=== PATIENT | female | born 1950 | race Caucasian/White ===

== ENCOUNTER 2020-07-21 13:07 | Observation (INO) | payer MEDICARE, OTHER ==
[2020-07-21] VITALS (23 sets, daily range): BP systolic 124–165; BP diastolic 58–82
[~2020-07-21] VITALS: Ht 165.1 cm; Wt 44.7 kg
[2020-07-21] MEDS: ENOXAPARIN 30MG/0.3ML SYRINGE (J1650 PER 10MG) SC SCH (09:00)
[2020-07-21] MEDS ORDERED: ALEN70TA74 PO (13:30)
[2020-07-21] MEDS ORDERED: LEVO50TA5 PO (13:30)
[2020-07-21] MEDS ORDERED: ATOR1TAB19 PO (13:30)
--- NOTE | 2020-07-21 13:35 | REPVR ---
PROCEDURE INFORMATION: Exam: CT Head Without Contrast Exam date and time: 07/21/2020 1:16 PM Age: 69 years old Clinical indication: Dizziness; Additional info: CVA - nursing interventions must not delay CT TECHNIQUE: Imaging protocol: Computed tomography of the head without contrast. Radiation optimization: All CT scans at this facility use at least one of these dose optimization techniques: automated exposure control; mA and/or kV adjustment per patient size (includes targeted exams where dose is matched to clinical indication); or iterative reconstruction. Other technique: STROKE PROTOCOL was implemented. COMPARISON: No relevant prior studies available. FINDINGS: Brain: There is mild ill-defined patchy hypodensity within the bilateral cerebral periventricular white matter, consistent with chronic microvascular ischemic changes. There is mild diffuse cerebral atrophy present, consistent with this patient's age. Ventricles: The ventricular system demonstrates mild diffuse compensatory enlargement. Bones/joints: Unremarkable. No acute fracture. Paranasal sinuses: Visualized sinuses are unremarkable. No fluid levels. Mastoid air cells: Visualized mastoid air cells are well aerated. Soft tissues: Unremarkable. IMPRESSION: 1. No acute infarction, masses or hemorrhage is seen. No acute intracranial abnormality is identified. 2. Diffuse age-related cerebral atrophy and mild chronic microvascular white matter ischemic changes. ASSESSMENT: ASPECTS ([facility] Stroke Program Early CT Score) is 10. Electronically signed by: Mariusz Onofre On 07/21/2020 13:35:05 PM
[2020-07-21 13:50] LABS: BASO # 0.1 10^3/uL (0.0-0.2); BASO % 0.7 % (0.0-1.0); EOS # 0.1 10^3/uL (0.0-0.5); EOS % 0.8 % (0.0-3.0); HEMATOCRIT 43.1 % (36.0-47.0); HEMOGLOBIN 14.6 g/dl (12.0-15.5); LYMPH # 2.2 10^3/uL (1.5-5.0); LYMPH % 28.3 % (24.0-44.0); MEAN CORPUSCULAR HEMOGLOBIN 30.7 pg (27.0-33.0); MEAN CORPUSCULAR HGB CONC 33.9 g/dl (32.0-36.5); MEAN CORPUSCULAR VOLUME 90.7 fl (80.0-96.0); MONO # 0.6 10^3/uL (0.0-0.8); MONO % 7.4 % (0.0-5.0); NEUTROPHILS # 4.8 10^3/uL (1.5-8.5); NEUTROPHILS % 62.5 % (36.0-66.0); PLATELET COUNT, AUTOMATED 199 10^3/uL (150-450); RED BLOOD COUNT 4.75 10^6/uL (4.00-5.40); WHITE BLOOD COUNT 7.6 10^3/uL (4.0-10.0)
[2020-07-21] MEDS ORDERED: ASPIRIN 325 MG TAB PO ONE (14:00)
[2020-07-21 14:01] LABS: INR 0.91; PARTIAL THROMBOPLASTIN TIME 24.7 SECONDS (24.2-38.5); PROTHROMBIN TIME 12.4 SECONDS (12.5-14.3)
--- NOTE | 2020-07-21 14:18 | REPVR ---
PROCEDURE INFORMATION: Exam: XR Chest, 1 View Exam date and time: 07/21/2020 2:07 PM Age: 69 years old Clinical indication: Other: Dizziness CVA TECHNIQUE: Imaging protocol: XR of the chest Views: 1 view. COMPARISON: No relevant prior studies available. FINDINGS: Lungs: No acute infiltrate is seen. Pleural space: No pneumothorax or pleural effusion is seen. Heart/Mediastinum: No cardiomegaly. Bones/joints: The visualized osseous structures are unremarkable. No acute fracture or dislocation is seen. IMPRESSION: No acute infiltrate, pneumothorax or pleural effusion is seen. Electronically signed by: Mariusz Onofre On 07/21/2020 14:18:35 PM
[2020-07-21] MEDS ORDERED: ATOR40TA75 PO (14:22)
[2020-07-21 14:29] LABS: CK-MB VALUE MASS < 1.0 NG/ML (<3.6); CPK CREATINE PHOSPHOKINASE 62 U/L (26-192); MB/CK RELATIVE INDEX 1.61 (< OR =4); TROPONIN I < 0.02 NG/ML (< 0.10)
[2020-07-21] MEDS ORDERED: MAALOX 30 ML SUSP *UDC PO PRN (15:00)
[2020-07-21] MEDS ORDERED: ACETAMINOPHEN TAB 650MG DOSE (2X325MG) PO PRN (15:00)
[2020-07-21] MEDS ORDERED: MOM 30ML SUSPENSION UDC PO PRN (15:00)
--- NOTE | 2020-07-21 15:04 | HPEPDOC ---
General Date of Admission Jul 21, 2020 at 13:08 Date of Service: Jul 21, 2020 Attending Physician: A Chief Complaint The patient is a 69-year-old female with a PMHx of hyperlipidemia, and hypothyroidism, who presented to [facility] ED c/o loss of speech for ~10-15 minutes this afternoon. [place] is visiting her [place] from [place]. She was sitting behind her computer, stood up and suddenly noticed that she coud not speak. She could understand her , and wanted to reply but could not express words. She denies having vision changes, headache, numbess, tingling, dizziness, weakness or gait instability at the time. The aphasia resolved after 10 minutes, but decided to come to hospital for workup. Denies prior episodes. No fall, or syncope, no trauma. In the ED, vitals stable. Lab work unremarkable. CT brain wo contrast showed no acute infarct or hemorrhage. Source: Patient Exam Limitations: No limitations Home Medications Scheduled Alendronate Sodium (Alendronate Sodium) 70 Mg Tablet, 70 MG PO QWEEK, (Reported) FRIDAY Atorvastatin Calcium (Atorvastatin Calcium) 40 Mg Tablet, 40 MG PO QHS, (Reported) Levothyroxine Sodium (Levothyroxine Sodium) 50 Mcg Tablet, 50 MCG PO DAILY, (Reported) Allergies Coded Allergies: No Known Allergies (Unverified , 07/21/20) Past Medical History Medical History HLD Hypothyroidism Surgical History Tubal ligation Family History Significant Family History: Heart disease Father - [place] Social History * Smoker: Denies Alcohol: Denies Drugs: denies Recent Travel/Sick Contacts: Denies: Recent travel, Recent sick contacts Psychosocial History: No pertinent psych hx A-FIB/CHADSVASC A-FIB History Current/History of A-Fib/PAF?: No Current PO Anticoag Therapy: No Review of Systems Constitutional: Denies: Chills, Fever, Malaise, Night Sweats, Weakness, Fatigue, Weight Loss, Lethargy, Other Eyes: Denies: Pain, Vision change, Conjunctivae inflammation, Eyelid inflammation, Redness, Other ENT: Denies: Head Aches, Ear Pain, Dysphagia, Sinus Congestion, Post Nasal Drip, Sore Throat, Epistaxis, Other Symptoms Skin: Denies: Rash, Lesions, Jaundice, Bruising, Itching, Dry, Breakdown, Nail Changes, Other Pulmonary: Denies: Dyspnea, Cough, Pleuritic Chest Pain, Other Symptoms Cardiovascular: Reports: Chest Pain; Denies: Palpitations, Orthopnea, Paroxysmal Noc. Dyspnea, Edema, Lt Headedness, Other Symptoms Gastrointestinal: Denies: Nausea, Vomiting, Abdominal Pain, Diarrhea, Constipation, Melena, Hematochezia, Other Symptoms Hematologic: Denies: Bruising, Bleeding Excessively, Petecchia, Purpura, Enlarged Lymph Nodes, Other Hematologic Neurological: Denies: Numbness, Incoordination, Change in speech, Confusion, Seizures, Other Symptoms Physical Examination General Exam: Positive: Cooperative, No Acute Distress, Mild Distress Eye Exam: Positive: PERRLA, Conjunctiva & lids normal, EOMI ENT Exam: Positive: Atraumatic, Mucous membr. moist/pink, Pharynx Normal Neck Exam: Positive: Supple Chest Exam: Positive: Clear to auscultation Heart Exam: Positive: Rate Normal, Normal S1, Normal S2 Abdomen Exam: Positive: Normal bowel sounds Extremity Exam: Positive: Normal pulses Skin Exam: Positive: Nl turgor and temperature Neuro Exam: Positive: Normal Speech, Strength at 5/5 X4 ext, Normal Tone, Cranial Nerves 3-12 NL, Reflexes 2+ Psych Exam: Positive: Mental status NL, Mood NL, Oriented x 3 Vital Signs Vital Signs Date Time Temp Pulse Resp B/P (MAP) Pulse Ox O2 Delivery O2 Flow Rate FiO2 07/21/20 14:45 76 150/67 100 07/21/20 13:51 18 Room Air 07/21/20 13:09 99.4 Laboratory Data Labs 24H Laboratory Tests 2 07/21/20 13:16: Immature Granulocyte % (Auto) 0.3, Neutrophils (%) (Auto) 62.5, Lymphocytes (%) (Auto) 28.3, Monocytes (%) (Auto) 7.4H, Eosinophils (%) (Auto) 0.8, Basophils (%) (Auto) 0.7, Neutrophils # (Auto) 4.8, Lymphocytes # (Auto) 2.2, Monocytes # (Auto) 0.6, Eosinophils # (Auto) 0.1, Basophils # (Auto) 0.1, Nucleated Red Blood Cells % (auto) 0.0, Prothrombin Time 12.4, Prothromb Time International Ratio 0.91, Activated Partial Thromboplast Time 24.7L, Total Creatine Kinase 62, Creatine Kinase MB < 1.0, Creatine Kinase MB Relative Index 1.61, Troponin I < 0.02 07/21/20 13:43: POC Glucose (Misc Panel) 96, POC Sodium (Misc Panel) 139, POC Potassium (Misc Panel) 3.9, POC Chloride (Misc Panel) 104, POC Total CO2 (Misc Panel) 24.0, POC Blood Urea Nitrogen (Misc Panel 18, POC Ionized Calcium (Misc Panel) 5.1, POC Creatinine (Misc Panel) 0.8, POC Hematocrit (Misc Panel) 44.0 07/21/20 13:45: Bedside Glucose (Misc Panel) 87 CBC/BMP Laboratory Tests 07/21/20 13:16 RAD Interpretation STUDY: CT Chest Rad Actions: Report Reviewed RAD Interpretation: Normal Assessment/Plan Assessment: 69 yo F with a hx of HLD, hypothyroidism, admitted for workup of TIA, after an episode of expressive aphasia which lasted for 10-15 minutes. Initial workup unremarkable. #Suspected TIA - expressive aphasia, lasted ~10-15 min, resolved - CT brain wo contrast showing no acute ischemia/hemorrhage - obtain MRI/MRA wo contrast - obtain Carotid US - obtain 2D echo with bubble study - lipid panel, A1c - bedside swallow eval performed, drank 3 oz of water without cough - continue ASA/statin (increase home lipitor to 80 mg qhs) - start plavix x 3 mo - outpatient neurology follow up #HDL - lipitor 80 mg qhs # Hypothyroid - resume home meds - check TSH, FT4 DVT ppx: lovenox Dispo: admitted for observation. Expect DC home after medical clearance. Plan / VTE VTE Prophylaxis Ordered?: Yes MIRIAN SHORE MD Jul 21, 2020 15:04
[2020-07-21 15:14] LABS: BLOOD UREA NITROGEN 18 MG/DL (7-18); CALCIUM LEVEL 9.8 MG/DL (8.8-10.2); CARBON DIOXIDE LEVEL 25 MEQ/L (21-32); CHLORIDE LEVEL 107 MEQ/L (98-107); CREATININE FOR GFR 0.91 MG/DL (0.55-1.30); GLOMERULAR FILTRATION RATE > 60.0 (>45); GLUCOSE, FASTING 92 MG/DL (70-100); POTASSIUM SERUM 4.3 MEQ/L (3.5-5.1); SODIUM LEVEL 140 MEQ/L (136-145)
[2020-07-21 16:14] LABS: HEMOGLOBIN A1c 5.7 %
--- NOTE | 2020-07-21 19:36 | REPVR ---
PROCEDURE INFORMATION: Exam: US Duplex Bilateral Extracranial Arteries Exam date and time: 07/21/2020 6:58 PM Age: 69 years old Clinical indication: Other: Suspected TIA TECHNIQUE: Imaging protocol: Real-time Duplex ultrasound scan of the bilateral carotid and vertebral arteries combining cross scale, color Doppler and spectral waveform analysis. Bilateral exam. COMPARISON: CT Head without contrast 07/21/2020 1:18 PM FINDINGS: Right common carotid artery: Unremarkable. No occlusion or stenosis. Waveforms are normal. Right internal carotid artery: Mild noncalcific atherosclerotic changes. No occlusion or stenosis. Waveforms are normal. Right ICA/CCA ratio: Within normal limits. Right external carotid artery: No stenosis in the origin. Right vertebral artery: Unremarkable. Antegrade flow. Left common carotid artery: Unremarkable. No occlusion or stenosis. Waveforms are normal. Left internal carotid artery: Mild noncalcific atherosclerotic changes. No occlusion or stenosis. Waveforms are normal. Left ICA/CCA ratio: Within normal limits. Left external carotid artery: No stenosis in the origin. Left vertebral artery: Unremarkable. Antegrade flow. IMPRESSION: 1. Mild atherosclerotic changes in both proximal internal carotid arteries resulting in a mild (well under 50%) stenosis bilaterally. 2. Antegrade flow in both vertebral arteries. REFERENCES: SRU CRITERIA. The degree of internal carotid artery stenosis is based on criteria defined by the Society of Radiologists in Ultrasound (SRU). Normal is no stenosis. Mild is less than 50% stenosis. Moderate is 50-69% stenosis. Severe is greater than 69% stenosis to near occlusion. Near occlusion is a markedly narrowed lumen. Total occlusion is no detectable patent lumen. Electronically signed by: Sivakumar Tomlinson On 07/21/2020 19:36:33 PM
[2020-07-21] MEDS ORDERED: ATORVASTATIN 20 MG TAB PO SCH (21:00)
[2020-07-21] MEDS: DOCUSATE SODIUM 100 MG CAP PO SCH (21:17)
[2020-07-22] VITALS: BP 129/57
[2020-07-22 04:00] VITALS: BP 116/57
[2020-07-22 05:29] LABS: BASO # 0.1 10^3/uL (0.0-0.2); EOS # 0.1 10^3/uL (0.0-0.5); EOS % 1.5 % (0.0-3.0); HEMATOCRIT 40.7 % (36.0-47.0); HEMOGLOBIN 13.3 g/dl (12.0-15.5); LYMPH # 2.5 10^3/uL (1.5-5.0); LYMPH % 34.8 % (24.0-44.0); MEAN CORPUSCULAR HEMOGLOBIN 29.4 pg (27.0-33.0); MEAN CORPUSCULAR HGB CONC 32.7 g/dl (32.0-36.5); MEAN CORPUSCULAR VOLUME 89.8 fl (80.0-96.0); MONO # 0.7 10^3/uL (0.0-0.8); MONO % 9.1 % (0.0-5.0); NEUTROPHILS # 3.9 10^3/uL (1.5-8.5); NEUTROPHILS % 53.3 % (36.0-66.0); PLATELET COUNT, AUTOMATED 190 10^3/uL (150-450); RED BLOOD COUNT 4.53 10^6/uL (4.00-5.40); WHITE BLOOD COUNT 7.3 10^3/uL (4.0-10.0)
[2020-07-22] MEDS ORDERED: LEVOTHYROXINE 50MCG TABLET (0.05MG) PO SCH (06:00)
[2020-07-22 08:00] VITALS: BP 142/68
[2020-07-22] MEDS: DOCUSATE SODIUM 100 MG CAP PO SCH (08:13)
[2020-07-22] MEDS: ENOXAPARIN 30MG/0.3ML SYRINGE (J1650 PER 10MG) SC SCH (08:13)
[2020-07-22 08:32] LABS: ALBUMIN 3.4 GM/DL (3.2-5.2); ALT/SGPT 37 U/L (12-78); BILIRUBIN,TOTAL 0.7 MG/DL (0.2-1.0); BLOOD UREA NITROGEN 16 MG/DL (7-18); CALCIUM LEVEL 9.5 MG/DL (8.8-10.2); CARBON DIOXIDE LEVEL 26 MEQ/L (21-32); CHLORIDE LEVEL 110 MEQ/L (98-107); CHOLESTEROL LEVEL 157 MG/DL (<200); CHOLESTEROL RISK RATIO 2.378 (<5); CREATININE FOR GFR 0.81 MG/DL (0.55-1.30); FREE T4 1.21 NG/DL (0.76-1.46); GLOMERULAR FILTRATION RATE > 60.0 (>45); GLUCOSE, FASTING 89 MG/DL (70-100); HDL CHOLESTEROL 66 MG/DL (>40); LDL CHOLESTEROL 76 MG/DL (<100); MAGNESIUM LEVEL 2.2 MG/DL (1.8-2.4); NON-HDL-C 91 MG/DL; POTASSIUM SERUM 4.3 MEQ/L (3.5-5.1); SODIUM LEVEL 142 MEQ/L (136-145); TOTAL PROTEIN 6.4 GM/DL (6.4-8.2); TRIGLYCERIDES LEVEL 76 MG/DL (<150); TROPONIN I < 0.02 NG/ML (< 0.10)
[2020-07-22] MEDS ORDERED: CLOPIDOGREL 75 MG TAB PO ONE ×2 (09:00→11:45)
--- NOTE | 2020-07-22 10:15 | REPVR ---
PROCEDURE INFORMATION: Exam: MR Head Without Contrast Exam date and time: 07/22/2020 9:35 AM Age: 69 years old Clinical indication: Altered mental status/memory loss; Confusion or disorientation; Additional info: Suspected TIA TECHNIQUE: Imaging protocol: MR of the head without contrast. COMPARISON: CT Head without contrast 07/21/2020 1:18 PM FINDINGS: Brain: There is mild patchy increased T2 signal intensity within the bilateral cerebral periventricular white matter, consistent with chronic microvascular ischemic changes. There is no abnormal diffusion weighted signal intensity to suggest an acute ischemic event. On gradient echo imaging, no susceptibility changes are seen to represent parenchymal calcification or degraded blood products. There is mild diffuse cerebral atrophy present, consistent with this patient's age. Ventricles: The ventricular system demonstrates mild diffuse compensatory enlargement. Bones/joints: Unremarkable. Sinuses: Normal as visualized. No acute sinusitis. Mastoid air cells: Normal as visualized. No mastoid effusion. Orbits: Unremarkable. Soft tissues: Unremarkable. IMPRESSION: 1. No acute infarction, masses or hemorrhage is seen. No acute intracranial abnormality is identified. 2. Diffuse age-related cerebral atrophy and mild chronic microvascular white matter ischemic changes, without evidence of an acute intracranial abnormality. 3. There has been no adverse interval change since the previous study. Electronically signed by: Mariusz Onofre On 07/22/2020 10:15:06 AM
--- NOTE | 2020-07-22 10:17 | REPVR ---
PROCEDURE INFORMATION: Exam: MR Angiogram Head Without Contrast, Arteries Exam date and time: 07/22/2020 9:35 AM Age: 69 years old Clinical indication: Cognitive deficit; Communication deficit; Patient HX: Confusion; Additional info: Suspected TIA TECHNIQUE: Imaging protocol: MR angiogram head without contrast. Exam focused on the arteries. 3D rendering (Not supervised by radiologist): MIP and/or 3D reconstructed images were created by the technologist. COMPARISON: CT Head without contrast 07/21/2020 1:18 PM FINDINGS: ANTERIOR CIRCULATION: Right internal carotid artery: Intracranial segment is patent with no significant stenosis. No aneurysm. Right middle cerebral artery: No occlusion or significant stenosis. No aneurysm. Right anterior cerebral artery: No occlusion or significant stenosis. No aneurysm. Left internal carotid artery: Intracranial segment is patent with no significant stenosis. No aneurysm. Left middle cerebral artery: No occlusion or significant stenosis. No aneurysm. Left anterior cerebral artery: No occlusion or significant stenosis. No aneurysm. POSTERIOR CIRCULATION: Right vertebral artery: No occlusion or significant stenosis. No aneurysm. Left vertebral artery: No occlusion or significant stenosis. No aneurysm. Basilar artery: No occlusion or significant stenosis. No aneurysm. Right posterior cerebral artery: No occlusion or significant stenosis. No aneurysm. Left posterior cerebral artery: No occlusion or significant stenosis. No aneurysm. IMPRESSION: No stenosis.No occlusion. No aneurysm. Electronically signed by: Mariusz Onofre On 07/22/2020 10:17:28 AM
[2020-07-22] MEDS ORDERED: SLF 3 ML SYR IV PRN (11:00)
[2020-07-22] MEDS ORDERED: ATOR1TAB21 PO (11:28)
[2020-07-22] MEDS ORDERED: PLAV1TAB2 PO ×2 (11:29→11:40)
[2020-07-22] MEDS ORDERED: ASPI-256 PO (11:38)
--- NOTE | 2020-07-22 11:51 | DS.PDOC ---
Discharge Summary General Date of Admission Jul 21, 2020 at 13:08 Date of Discharge 07/22/20 Attending Physician: MIRIAN SHORE MD Discharge Summary PROCEDURES PERFORMED DURING STAY: None ADMITTING DIAGNOSES: TIA HLD Hypothyroidism DISCHARGE DIAGNOSES: TIA HLD Hypothyroidism COMPLICATIONS/CHIEF COMPLAINT: TIA. HISTORY OF PRESENT ILLNESS: The patient is a 69-year-old female with a PMHx of hyperlipidemia, and hypothyroidism, who presented to [facility] ED c/o loss of speech for ~10-15 minutes this afternoon. She is visiting her cottage from [place]. She was sitting behind her computer, stood up and suddenly noticed that she coud not speak. She could understand her , and wanted to reply but could not express words. She denies having vision changes, headache, nu mbess, tingling, dizziness, weakness or gait instability at the time. The aphasia resolved after 10 minutes, but decided to come to hospital for workup. Denies prior episodes. No fall, or syncope, no trauma. In the ED, vitals stable. Lab work unremarkable. CT brain wo contrast showed no acute infarct or hemorrhage. HOSPITAL COURSE: Suspected TIA - expressive aphasia, lasted ~10-15 min, resolved - CT brain wo contrast showing no acute ischemia/hemorrhage - obtain MRI/MRA wo contrast - obtain Carotid US - obtain 2D echo with bubble study - review with hangersmith Dr. Galvan - negative for intracardiac shunting - LVEF 60% - G1DD - mild to mod elevated PA systolic pressure (37/42) - mild to mod MR - a1c 5.7 - LCL 76, Chol 157, HDL 66. - bedside swallow eval performed, drank 3 oz of water without cough - [employer] eval wnl - c/w asa/statin (increase home lipitor to 80 mg qhs) - start plavix x 3 mo - outpatient neurology follow up #HDL - lipitor 80 mg qhs (increased from 40 mg qhs) # Hypothyroid - resume home meds - TSH, FT4 - wnl DISCHARGE MEDICATIONS: Please see below. ALLERGIES: Please see below. PHYSICAL EXAMINATION ON DISCHARGE: VITAL SIGNS: Please see below. General: NAD, comfortable HEENT: PERRLA, EOMI, sclerae clear Neck: supple, normal ROM, no JVD Resp: lungs CTAB, no wheeze, no rales, no crackles CVS: RRR, normal S1, S2, no murmurs Abdo: soft, no masses, no hepatosplenomegaly, BS+, no rebound tenderness Extremities: no edema, pulses 2+ MSK: no joint deformities, normal ROM Neuro: Normal Speech, Strength at 5/5 X4 ext, Normal Tone, Cranial Nerves 3-12 NL, Reflexes 2+ Psych: calm, cooperative, AAO x 3 LABORATORY DATA: Please see below. IMAGING: CT brain wo contrast: FINDINGS: Brain: There is mild ill-defined patchy hypodensity within the bilateral cerebral periventricular white matter, consistent with chronic microvascular ischemic changes. There is mild diffuse cerebral atrophy present, consistent with this patient's age. Ventricles: The ventricular system demonstrates mild diffuse compensatory enlargement. Bones/joints: Unremarkable. No acute fracture. Paranasal sinuses: Visualized sinuses are unremarkable. No fluid levels. Mastoid air cells: Visualized mastoid air cells are well aerated. Soft tissues: Unremarkable. IMPRESSION: 1. No acute infarction, masses or hemorrhage is seen. No acute intracranial abnormality is identified. 2. Diffuse age-related cerebral atrophy and mild chronic microvascular white matter ischemic changes. Carotid US: IMPRESSION: 1. Mild atherosclerotic changes in both proximal internal carotid arteries resulting in a mild (well under 50%) stenosis bilaterally. 2. Antegrade flow in both vertebral arteries. MRA brain: FINDINGS: ANTERIOR CIRCULATION: Right internal carotid artery: Intracranial segment is patent with no significant stenosis. No aneurysm. Right middle cerebral artery: No occlusion or significant stenosis. No aneurysm. Right anterior cerebral artery: No occlusion or significant stenosis. No aneurysm. Left internal carotid artery: Intracranial segment is patent with no significant stenosis. No aneurysm. Left middle cerebral artery: No occlusion or significant stenosis. No aneurysm. Left anterior cerebral artery: No occlusion or significant stenosis. No aneurysm. POSTERIOR CIRCULATION: Right vertebral artery: No occlusion or significant stenosis. No aneurysm. Left vertebral artery: No occlusion or significant stenosis. No aneurysm. Basilar artery: No occlusion or significant stenosis. No aneurysm. Right posterior cerebral artery: No occlusion or significant stenosis. No aneurysm. Left posterior cerebral artery: No occlusion or significant stenosis. No aneurysm. IMPRESSION: No stenosis.No occlusion. No aneurysm. MRI brain wo contrast: FINDINGS: Brain: There is mild patchy increased T2 signal intensity within the bilateral cerebral periventricular white matter, consistent with chronic microvascular ischemic changes. There is no abnormal diffusion weighted signal intensity to suggest an acute ischemic event. On gradient echo imaging, no susceptibility changes are seen to represent parenchymal calcification or degraded blood products. There is mild diffuse cerebral atrophy present, consistent with this patient's age. Ventricles: The ventricular system demonstrates mild diffuse compensatory enlargement. Bones/joints: Unremarkable. Sinuses: Normal as visualized. No acute sinusitis. Mastoid air cells: Normal as visualized. No mastoid effusion. Orbits: Unremarkable. Soft tissues: Unremarkable. IMPRESSION: 1. No acute infarction, masses or hemorrhage is seen. No acute intracranial abnormality is identified. 2. Diffuse age-related cerebral atrophy and mild chronic microvascular white matter ischemic changes, without evidence of an acute intracranial abnormality. 3. There has been no adverse interval change since the previous study. PROGNOSIS: good ACTIVITY: As tolerated DIET: low cholesterol DISCHARGE PLAN: PCP follow, will need neurology follow up. Continue ASA/Plavix and high intensity statin for at least 3 months, or until neurology follow up. DISPOSITION: [place] home, self care DISCHARGE INSTRUCTIONS: PLEASE FOLLOW UP WITH YOUR PRIMARY CARE DOCTOR WITHIN 3-5 DAYS PLEASE FOLLOW UP WITH NEUROLOGY WITHIN 1-2 WEEKS. IF YOU MOVE BACK TO [place], YOUR PRIMARY CARE DOCTOR CAN REFER YOU. PLEASE TAKE YOUR MEDICATIONS PRESCRIBED - YOU HAVE BEEN STARTED ON ANTIPLATELET MEDICATIONS FOR SECONDARY PREVENTION OF TIA - ASPIRIN AND PLAVIX. PLEASE CONTINUE UNTIL YOU ARE EVALUATED BY YOUR NEUROLOGIST. IF YOU DEVELOP SUDDEN LOSS OF SPEECH, WEAKNESS, SEIZURE, CHEST PAIN, SHORTNESS O F BREATH, FEVERS, CHILLS, BLEEDING OR OTHERWISE WORSENING FO YOUR SYMPTOMS, PLASE CALL 911 OR RETURN TO THE EMERGENCY DEPARTMENT. ITEMS TO FOLLOWUP ON ON OUTPATIENT: 1. Ensure neurology evaluation as outpatient. DISCHARGE CONDITION: Stable, speech at baseline. TIME SPENT ON DISCHARGE: Greater than 30 minutes. Vital Signs/I&Os Vital Signs Date Time Temp Pulse Resp B/P (MAP) Pulse Ox O2 Delivery O2 Flow Rate FiO2 07/22/20 08:00 98.6 70 18 142/68 (92) 100 Room Air Laboratory Data Labs 24H Laboratory Tests 2 07/21/20 13:16: Immature Granulocyte % (Auto) 0.3, Neutrophils (%) (Auto) 62.5, Lymphocytes (%) (Auto) 28.3, Monocytes (%) (Auto) 7.4H, Eosinophils (%) (Auto) 0.8, Basophils (%) (Auto) 0.7, Neutrophils # (Auto) 4.8, Lymphocytes # (Auto) 2.2, Monocytes # (Auto) 0.6, Eosinophils # (Auto) 0.1, Basophils # (Auto) 0.1, Nucleated Red Blood Cells % (auto) 0.0, Prothrombin Time 12.4, Prothromb Time International Ratio 0.91, Activated Partial Thromboplast Time 24.7L, Anion Gap 8, Glomerular Filtration Rate > 60.0, Estimated Mean Plasma Glucose 117H, Hemoglobin A1c 5.7, Calcium Level 9.8, Total Creatine Kinase 62, Creatine Kinase MB < 1.0, Creatine Kinase MB Relative Index 1.61, Troponin I < 0.02 07/21/20 13:43: POC Glucose (Misc Panel) 96, POC Sodium (Misc Panel) 139, POC Potassium (Misc Panel) 3.9, POC Chloride (Misc Panel) 104, POC Total CO2 (Misc Panel) 24.0, POC Blood Urea Nitrogen (Misc Panel 18, POC Ionized Calcium (Misc Panel) 5.1, POC Creatinine (Misc Panel) 0.8, POC Hematocrit (Misc Panel) 44.0 07/21/20 13:45: Bedside Glucose (Misc Panel) 87 07/21/20 17:50: Troponin I 0.02 07/21/20 23:46: Troponin I 0.03# 07/22/20 04:45: Troponin I < 0.02#, Immature Granulocyte % (Auto) 0.3, Neutrophils (%) (Auto) 53.3, Lymphocytes (%) (Auto) 34.8, Monocytes (%) (Auto) 9.1H, Eosinophils (%) (Auto) 1.5, Basophils (%) (Auto) 1.0, Neutrophils # (Auto) 3.9, Lymphocytes # (Auto) 2.5, Monocytes # (Auto) 0.7, Eosinophils # (Auto) 0.1, Basophils # (Auto) 0.1, Nucleated Red Blood Cells % (auto) 0.0, Anion Gap 6L, Glomerular Filtration Rate > 60.0, Calcium Level 9.5, Magnesium Level 2.2, Total Bilirubin 0.7, Aspartate Amino Transf (AST/SGOT) 26, Alanine Aminotransferase (ALT/SGPT) 37, Alkaline Phosphatase 67, Total Protein 6.4, Albumin 3.4, Albumin/Globulin Ratio 1.1L, Triglycerides Level 76, Total Cholesterol 157, LDL Cholesterol 76, Non-HDL Cholesterol (LDL + VLDL) 91, Total HDL Cholesterol 66, Cholesterol/HDL Ratio 2.378, Thyroid Stimulating Hormone (TSH) 2.400, Free Thyroxine 1.21 CBC/BMP Laboratory Tests 07/21/20 13:16 07/22/20 04:45 FSBS Laboratory Tests Test 07/21/20 13:45 Range/Units Bedside Glucose (Misc Panel) 87 80-115 MG/DL Discharge Medications Scheduled Alendronate Sodium (Alendronate Sodium) 70 Mg Tablet, 70 MG PO QWEEK, (Reported) FRIDAY Aspirin (Aspirin) 81 Mg Tab.chew, 1 TAB PO DAILY for pain Atorvastatin Calcium (Atorvastatin Calcium) 20 Mg Tablet, 80 MG PO QHS Clopidogrel Bisulfate (Plavix) 75 Mg Tablet, 75 MG PO DAILY Levothyroxine Sodium (Levothyroxine Sodium) 50 Mcg Tablet, 50 MCG PO DAILY, (Reported) Allergies Coded Allergies: No Known Allergies (Unverified , 07/21/20) MIRIAN SHORE MD Jul 22, 2020 11:51
[2020-07-22 12:00] VITALS: BP 120/59
--- NOTE | 2020-07-22 12:02 | ECGEPIP ---
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
[2020-07-22] MEDS ORDERED: SLF 3 ML SYR IV SCH (14:00)
--- NOTE | 2020-07-22 16:43 | ECGEPIP ---
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
--- NOTE | 2020-07-24 07:41 | ECHO ---
DATE OF PROCEDURE: 07/21/2020 Age: Gender: Height: 165 cm Weight: 46 kg REFERRING PHYSICIAN: Alfred Diaz MD INDICATION: Transient cerebral ischemia, unspecified. MEASUREMENTS: 2D Measurements: Left atrium 2.9 cm Aortic root 2.6 cm Intraventricular septum 0.98 cm Posterior wall 0.71 cm Left ventricle diastole 4.1 cm Proximal ascending aorta 2.8 cm Inferior vena cava 1.8 cm (more than 50% respiratory variation) Doppler Measurements: Trace aortic regurgitation No aortic stenosis Aortic valve velocity 90.4 cm/s LVOT velocity 85.5 cm/s Mild-moderate mitral regurgitation Mitral E velocity 55.8 cm/s Mitral A velocity 67.1 cm/s Mitral deceleration time 180 msec Mild tricuspid regurgitation Estimated right ventricular systolic pressure 37-42 mmHg No pulmonic regurgitation Pulmonary acceleration time 148 msec MITRAL ANNULAR TISSUE DOPPLER E prime septal 5.9 cm/s, E prime lateral 9.7 cm/s DESCRIPTION: Rhythm was sinus. Image quality was good. This was a 2D, M-mode, color flow Doppler, and pulsed wave Doppler examination including mitral annular tissue Doppler. No pericardial effusion. CONCLUSIONS: 1. Negative bubble study for detection of intracardiac shunting. 2. Normal left ventricle internal dimensions and wall thickness. Normal regional LV wall motion and wall thickening. Normal LV systolic function. LVEF 60% by visual estimate. Grade 1 LV diastolic dysfunction (impaired relaxation filling pattern). 3. Structurally normal appearing mitral leaflets with mild-moderate mitral regurgitation (possibly within normal limits). 4. Trace aortic regurgitation. Structurally normal appearing 3-cuspid aortic valve. 5. Suggestive of mild-moderate elevation of estimated right ventricle systolic pressure. 6. Otherwise normal appearing echocardiogram Doppler findings. [facility]
[2020-07-24 11:01] LABS: VITAMIN B12 LEVEL 357 PG/ML (247-911)
== END 2020-07-22 14:40 | disposition home or self-care (01) ==
LOC: M ED 13:07 → M ED INP 13:08 → M PCU 20:10
PROVIDERS: ADMIT Family Medicine; ATTEND Family Medicine
DX: G45.9 Transient cerebral ischemic attack, unspecified (principal); E78.2 Mixed hyperlipidemia; E03.9 Hypothyroidism, unspecified; Z79.82 Long term (current) use of aspirin; Z79.899 Other long term (current) drug therapy
CPT/HCPCS: 36415; 70450; 70544; 70551; 71045; 80047; 80048; 80053; 80061; 82306; 82550; 82553; 82607; 83036; 83735; 84439; 84443; 84484; 85025; 85610; 85730; 86850; 86900; 86901; 92610; 93005; 93041; 93306; 93880; 94760; 96372; 97161; 99285; G0378; J1650